=== PATIENT | female | born 2005 | race Caucasian/White ===

== ENCOUNTER 2023-12-06 10:56 | Day surgery (SDC) | payer BC ==
[2023-12-06 11:19] VITALS: BMI 18.7
[2023-12-06 12:57] VITALS: RESP 18; TEMP 97.5
[2023-12-06 13:18] VITALS: BP 100/52; PULSE 82
== END 2023-12-06 13:15 | disposition home or self-care (01) ==
LOC: FASU-ENDO 10:56
PROVIDERS: ATTEND Internal Medicine Gastroenterology
PROC: 0DBL8ZX Excision of Transverse Colon, Via Natural or Artificial Opening Endoscopic, Diagnostic (ICD-10-PCS; 2023-12-06)
PROC: 0DBM8ZX Excision of Descending Colon, Via Natural or Artificial Opening Endoscopic, Diagnostic (ICD-10-PCS; 2023-12-06)
PROC: 0DB98ZX Excision of Duodenum, Via Natural or Artificial Opening Endoscopic, Diagnostic (ICD-10-PCS; 2023-12-06)
PROC: 0DB68ZX Excision of Stomach, Via Natural or Artificial Opening Endoscopic, Diagnostic (ICD-10-PCS; 2023-12-06)
PROC: 0DB48ZX Excision of Esophagogastric Junction, Via Natural or Artificial Opening Endoscopic, Diagnostic (ICD-10-PCS; 2023-12-06)
PROC: 0DBK8ZX Excision of Ascending Colon, Via Natural or Artificial Opening Endoscopic, Diagnostic (ICD-10-PCS; principal; 2023-12-06 12:11)
DX: K63.5 Polyp of colon (principal); K64.1 Second degree hemorrhoids; K64.8 Other hemorrhoids; K21.00 Gastro-esophageal reflux disease with esophagitis, without bleeding; K29.50 Unspecified chronic gastritis without bleeding
CPT/HCPCS: 81025; 88305-TC; 88342-TC